=== PATIENT | male | born 1950 | race Caucasian/White ===

== ENCOUNTER 2018-10-13 15:33 | Emergency (ER) | payer SELFPAY ==
[~2018-10-13] VITALS: Ht 170.2 cm; Wt 70.0 kg
[2018-10-13] MEDS ORDERED: OLANZAPINE 10 MG/VIAL IM STA (15:47)
[2018-10-13 16:07] LABS: BASOPHILS % 0.6 % (0.0-2.0); EOSINOPHILS % 3.8 % (0.0-5.0); HEMATOCRIT. 32.1 % (42.0-52.0); HEMOGLOBIN. 10.9 g/dL (14.0-18.0); LYMPHOCYTES % 18.2 % (20.0-50.0); MEAN CORPUSCULAR HEMOGLOBIN 33.9 pg (28.0-32.0); MEAN CORPUSCULAR VOLUME 99.9 fL (80.0-94.0); MEAN PLATELET VOLUME 6.6 fl (7.4-10.4); MONOCYTES % 9.4 % (2.0-8.0); PLATELET 216 x1000/uL (130-400); RED BLOOD CELL COUNT 3.22 mill/uL (4.7-6.1); RED CELL DISTRIBUTION WIDTH 18.2 % (11.6-14.6)
[2018-10-13 16:10] LABS: CHLORIDE 108 mEq/L (98-107)
[2018-10-13 16:14] LABS: ETHANOL BLOOD 81 mg/dL
[2018-10-13] MEDS ORDERED: LORAZEPAM 2MG/ML CPJ IM STA (16:55)
[2018-10-13 17:01] LABS: CLARITY URINE CLEAR (CLEAR); COLOR URINE YELLOW (YELLOW); KETONES URINE NEGATIVE (NEGATIVE); LEUKOCYTE ESTERASE URINE NEGATIVE (NEGATIVE); NITRITE URINE NEGATIVE (NEGATIVE); OCCULT BLOOD URINE NEGATIVE (NEGATIVE); PROTEIN URINE NEGATIVE (NEGATIVE); SPECIFIC GRAVITY URINE 1.005 (1.005-1.030); UROBILINOGEN URINE 0.2 E.U./dL (0.2-1.0)
[2018-10-14 05:27] VITALS: BP 127/67
== END 2018-10-14 07:13 | disposition home or self-care (01) ==
LOC: ER 16:34
DX: R41.82 Altered mental status, unspecified (principal); R45.1 Restlessness and agitation; F10.129 Alcohol abuse with intoxication, unspecified; K75.9 Inflammatory liver disease, unspecified; F11.90 Opioid use, unspecified, uncomplicated; Y90.4 Blood alcohol level of 80-99 mg/100 ml; Z86.59 Personal history of other mental and behavioral disorders
CPT/HCPCS: 36415; 80053; 80320; 81003; 85025; 96372; 99284; J2060; J3490; 99283; G0480